=== PATIENT | male | born 1965 | race Two or more races ===

== ENCOUNTER → 2025-02-21 | Outpatient (CLI) | payer MEDICAID, SELFPAY ==
--- NOTE | 2025-02-21 15:10 | XR_ITS ---
Examination: Right right hip AP, lateral, AP pelvis 3 views, on 02/24/2025 at 3:21 p.m. Clinical history no history given Technique: Hip AP lateral, AP pelvis, 3 views Findings: 1 no significant abnormalities are seen in the lower 3 lumbar sacral vertebra. Sacroiliac joints appear all right. In the left hip there is mild but definite abnormal degenerative narrowing of the articular cartilage, small osteophytes are seen at the lateral margin of the acetabulum. In the right hip joint, there is complete degenerative narrowing of the articular cartilage with [id number] contact between the superior margin of the acetabulum and the femoral head. There is slight subchondral bony erosion and osteophyte formation at the superolateral margin of the acetabulum. There are osteophytes surrounding the peripheral margins of the femoral head. IMPRESSION: 1. 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
== END | disposition home or self-care (01) ==
LOC: CDIM 15:04
PROVIDERS: PCP Family Medicine; Referring Provider Nurse Practitioner Family; Visit Provider Nurse Practitioner Family
DX: M16.11 Unilateral primary osteoarthritis, right hip (principal)
CPT/HCPCS: 73502

== ENCOUNTER 2025-03-01 10:57 | Emergency (ER) | payer MEDICAID, SELFPAY ==
[2025-03-01 11:12] VITALS: BP 135/67; PULSE 81; RESP 16; TEMP 36.9; O2SAT 99; BMI 27.7
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
[2025-03-01] MEDS: DIPHTH,PERTUSS(ACELL),TET VAC 0.5 ML SYR- ADULT IMi (12:08)
[2025-03-01 12:15] VITALS: BP 155/70; PULSE 73; RESP 17; TEMP 36.8; O2SAT 97
== END 2025-03-01 12:15 | disposition home or self-care (01) ==
PROVIDERS: Emergency Provider Nurse Practitioner Family; PCP Nurse Practitioner Family
DX: T25.111A Burn of first degree of right ankle, initial encounter (principal); T31.0 Burns involving less than 10% of body surface; X17.XXXA Contact with hot engines, machinery and tools, initial encounter; Z23 Encounter for immunization
CPT/HCPCS: 90471; 90715; 99281